=== PATIENT | female | born 1955 | race African-American/Black ===

== ENCOUNTER 2024-08-01 01:24 | Emergency (ER) | payer MEDICARE, MEDICAID ==
[~2024-08-01] VITALS: Ht 162.6 cm; Wt 84.0 kg
[~2024-08-01 01:24] MED LIST: ACET-2708 MT; AMLO10TA80 PO; ATOR20TA PO; DOCU-422 PO; FOLI-43 PO; HYDR-4005 PO; IBUP-2028 MT; MELA3TAB40 PO; PANT40TA51 MT; THIA100T72 PO
[2024-08-01 01:29] VITALS: O2SAT 97
[2024-08-01] MEDS: KETOROLAC 15MG/ML VIAL IM ONE ×2 (01:59→03:37)
[2024-08-01 06:45] VITALS: BP 111/69; PULSE 79; RESP 18; TEMP 36.7; O2SAT 98
== END 2024-08-01 06:47 ==
LOC: ER 01:24
DX: M79.672 Pain in left foot (principal); I10 Essential (primary) hypertension; Z79.899 Other long term (current) drug therapy
CPT/HCPCS: 99285; 73590; 73610; 73630; 96372; J1885

== ENCOUNTER 2024-08-04 14:18 | Emergency (ER) | payer MEDICARE, MEDICAID ==
[~2024-08-04] VITALS: Ht 165.1 cm; Wt 73.0 kg
[2024-08-04 14:55] VITALS: TEMP 36.9
[2024-08-04] MEDS: MORPHINE SULFATE 4 MG/ML INJ (FOR IV/IM USE) IM ONE (15:53)
[2024-08-04] MEDS ORDERED: LORAZEPAM 1MG TABLET PO ONE (16:45)
[2024-08-04] MEDS ORDERED: DIPHENHYDRAMINE 25MG CAPSULE PO ONE (16:45)
[2024-08-04] MEDS ORDERED: QUET25TA PO (17:05)
[2024-08-04] MEDS ORDERED: THIA100T72 MT (17:05)
[2024-08-04] MEDS ORDERED: OLAN5TAB39 MT (17:05)
[2024-08-04] MEDS ORDERED: LORAZEPAM 2MG/ML INJ IM ONE (17:15)
[2024-08-04] MEDS: DIPHENHYDRAMINE 50MG/ML VIAL IM ONE (17:37)
[2024-08-04] MEDS: LORAZEPAM 2MG/ML UD SYRINGE IM SCH (17:37)
[2024-08-04 18:18] VITALS: O2SAT 95
[2024-08-04] MEDS: HALOPERIDOL LACTATE 5MG/ML VIAL IM ONE (19:11)
[2024-08-04 19:12] VITALS: BP 141/89; PULSE 90; RESP 18; O2SAT 98
[2024-08-04] MEDS: MIDAZOLAM HCL 2 MG/2 ML VIAL IM ONE (19:12)
== END 2024-08-04 19:29 | disposition home or self-care (01) ==
LOC: ER 14:18
DX: M25.572 Pain in left ankle and joints of left foot (principal); I10 Essential (primary) hypertension; F10.90 Alcohol use, unspecified, uncomplicated; Z79.899 Other long term (current) drug therapy; Y90.9 Presence of alcohol in blood, level not specified
CPT/HCPCS: 99285; 96372; J1200; J1630; J2060; J2250; J2270